=== PATIENT | male | born 1955 | race Caucasian/White ===

== ENCOUNTER 2022-11-08 09:39 | Outpatient (CLI) | payer MEDICARE, SELFPAY ==
[2022-11-08 20:28] LABS: Basophils Absolute Auto 0.1 K/mm3 (0.0-0.1); Basophils Percent Auto 0.8 % (0.2-1.2); Eosinophils Absolute Auto 0.2 K/mm3 (0-0.3); Eosinophils Percent Auto 2.6 % (0-4.4); Hematocrit 49.8 % (42.0-52.0); Hemoglobin 16.1 g/dL (14.0-18.0); Immature Granulocyte Absolute 0.02 K/mm3 (0.00-0.031); Immature Granulocyte Percent A 0.3 % (0-0.5); Lymphocytes Absolute Auto 2.25 K/mm3 (0.9-3.2); Lymphocytes Percent Auto 34.6 % (18.3-44.2); Mean Corpuscular HGB Conc 32.3 g/dl (32-36); Mean Corpuscular Hemoglobin 29.7 pg (26-34); Mean Corpuscular Volume 91.7 fl (80-100); Mean Platelet Volume 11.1 fl (7.4-10.4); Monocytes Absolute Auto 0.6 K/mm3 (0.1-0.6); Monocytes Percent Auto 8.9 % (2.6-8.5); Neutrophils Absolute Auto 3.4 K/mm3 (1.3-6.7); Neutrophils Percent Auto 52.8 % (45.5-73.1); Platelet Count Result 263 k/mm3 (150-375); Red Blood Count 5.43 M/mm3 (4.6-6.20); Red Cell Distribution Width 12.8 % (11.5-14.5); White Blood Count 6.5 K/mm3 (4.5-10.0)
[2022-11-08 21:32] LABS: Alanine Aminotransferase 37 U/L (6-50); Albumin Level 4.4 g/dL (3.5-5.1); Alkaline Phosphatase 64 U/L (38-126); Anion Gap 4 mmol/L (8-16); Aspartate Amino Transferase 40 U/L (17-59); Bilirubin,Total 0.5 mg/dL (0.2-1.3); Blood Urea Nitrogen 20 mg/dL (9-20); Calcium 9.1 mg/dL (8.4-10.2); Carbon Dioxide 29 mmol/L (22-30); Chloride 106 mmol/L (98-107); Cholesterol 246 mg/dL (0-200); Estimated Glomerular Filt Rate > 60; Glucose 95 mg/dL (65-110); HDL Direct 42 mg/dL; Potassium 4.9 mmol/L (3.4-5.0); Sodium 139 mmol/L (137-145); Triglycerides 189 mg/dL (<150)
[2022-11-08 21:44] LABS: LDL Cholesterol Direct 147 mg/dL
[2022-11-08 22:04] LABS: Prostate Specific Antigen 2.4 ng/mL (< OR = 4.0)
[2022-11-09 00:29] LABS: Vitamin D 25 Hydroxy 39.6 ng/mL
== END 2022-11-08 09:40 | disposition home or self-care (01) ==
LOC: ANHGOSHLAB 09:44
PROVIDERS: PCP Family Medicine; Visit Provider Family Medicine
DX: J30.2 Other seasonal allergic rhinitis (principal); R03.0 Elevated blood-pressure reading, without diagnosis of hypertension; E78.5 Hyperlipidemia, unspecified; Z12.5 Encounter for screening for malignant neoplasm of prostate; E53.8 Deficiency of other specified B group vitamins; E55.9 Vitamin D deficiency, unspecified
CPT/HCPCS: 36415; 80053; 80061; 82306; 82607; 84153; 84443; 85025; G0103

== ENCOUNTER 2022-11-15 08:33 | Outpatient (CLI) | payer MEDICARE, SELFPAY ==
--- NOTE | 2022-12-09 18:17 | WPDSLEEPSTUD ---
Sleep Study Date of Study: 11/15/22 Ordering Provider: Jocelynn Bravo MD Interpreting Physician: Sue Stratton MD Sleep Study Type: Split Polysomnogram Height: 1.75 m Weight: 89.358 kg Body Mass Index: 29.0 Neck Circumference (inches): 16.5 [place]: 10 Reason for Sleep Study Snoring and daytime hypersomnia Sleep History Teo Simpson is a 67-year-old male who presented to the sleep lab for a split study for evaluation of snoring and daytime hypersomnia. He rarely awakens from sleep short of breath.? He rarely awakens at night with heartburn, belching or cough.? He frequently snores and snores loud enough for others to complain. He never has trouble sleeping when he has a cold. He rarely wakes up gasping for breath during the night. He rarely has breathing problems at night. He never sweats excessively at night. He never falls asleep during the day. He does not fall asleep involuntarily and never falls asleep while driving.? He rarely notices his heart pounding or beating irregularly during the night.? He never experiences loss of muscle tone with strong emotion. He never feels paralyzed on waking or falling asleep. He does not experience vivid dreams upon waking or falling asleep. He never feels afraid of going to sleep. He never has nightmares. He rarely recalls his dreams. He occasionally has thoughts racing through his mind. He never feels sad or depressed. He never feels anxiety or worry about things. He never notices parts of his body jerk. He never kicks during the night. He never feels crawling or aching feelings in his legs. He does not grind his teeth during sleep and never has morning jaw pain. He does not feel bothered by pain during the day and does not wake up in the morning with pain. Normal bedtime is around 10:30pm on the weekdays and same on the weekends, usually falling asleep quickly, in seconds. He typically gets about 7.5 to 8 hours of sleep per night. His wake-up time is around 5am to 6am on the weekdays and same on the weekends. He typically wakes up around 1 time per night, awake 1 or 2 minutes and he goes to the bathroom. He occasionally watches television before falling asleep. He occasionally naps in the afternoon or evening but not often. Habits:? Never tobacco smoker. Drinks about 3 cups of coffee per day. He drinks alcohol socially. He does not use recreational substances.? [facility] Past Medical History Medical History Dyslipidemia Plantar fasciitis of left foot Seasonal allergies Surgical History Surgical History History of nasal surgery (~1975) for nasal fracture History of right inguinal hernia repair (~1956) congenital Family History Family History Father Hypertension Heart disease Cerebrovascular accident Mother Lung cancer Heart disease Social History Social History Smoking status: Current some day smoker Tobacco type: cigars Alcohol intake: current Substance use: never Substance use type: does not use Lack of Transportation: No Lack of Food: Never True Current Housing: I Have Housing Concerned About Future Housing: No Difficulty Paying Gas/Electric Bills: No Difficulty Paying for Meds: No Currently Unemployed: No Education: High School Diploma/GED Difficulty w/ Childcare or Family Care: No Living arrangements: with family Additional living arrangements comments: Occupation/Education: occupation Additional occupation/education comments: self employed Gender identity (if verbalized by the patient): Male Sexual Orientation (if Verbalized by the Patient): Straight or Heterosexual Agree to blood products: Yes Medications Home Medications Medication Instructions Recorded Confirmed Type fexofenadine 180 mg ta
[2022-12-09 18:21] VITALS: BMI 29.0
== END 2022-11-16 06:49 | disposition home or self-care (01) ==
LOC: ANHCSM 08:33
PROVIDERS: PCP Family Medicine; Visit Provider Family Medicine
DX: R40.0 Somnolence (principal)
CPT/HCPCS: 95811

== ENCOUNTER 2023-06-29 00:17 | Day surgery (SDC) | payer MEDICARE, SELFPAY ==
[2023-06-21 09:24] VITALS: BMI 30.3
--- NOTE | 2023-06-21 09:32 | PC.NURSE ---
PRE-OP INSTRUCTIONS, PLEASE READ CAREFULLY Report to the Outpatient Waiting Room, entrance under the green pavilion located off [facility], at time _1000_ on date _06/29/23_. Planned Procedure Time: _1200_. Time changes happen often and if your time is changed the preop area will call you the afternoon before. - You and your visitor will be asked to self-screen and do not enter if you have any COVID symptoms. - A mask is optional within the hospital at this time. Patients may have clear liquids (water, carbonated beverages, clear teas, apple juice) until 3 hours prior to surgery (0900 AM) with a maximum of 20 ounces. - No food from midnight until time of surgery Take the following medications with a SIP of water the morning of surgery: _NASAL SPRAY IF NEEDED_ DO NOT STOP ANY OF YOUR OTHER PRESCRIPTION MEDICATIONS PRIOR TO SURGERY ?EXCEPT THE FOLLOWING Medications to discontinue per physician ___NONE____, Date to take last dose Please no make-up, nail montserratian, hairspray, perfume, deodorant, or body powder the day of surgery. No jewelry (including any body piercings) or valuables the day of surgery, leave them at home. Please take a shower or bath the night before, or the morning of, surgery with an antibacterial soap. Wear comfortable, loose fitting clothing. - Jewelry must be removed prior to entering the operating room. Rings and piercings that are not removed may be cut off. - The hospital will not accept responsibility for valuables. - Please leave all valuables, including medications, at home the day of surgery. If you are going home after surgery, a licensed long haul truck driver must drive you home. - NO public transportation without another adult if you receive anesthesia. - We recommend that an adult stay with you for 24 hours following discharge. - We also recommend that you do not drive, make important decision, drink alcoholic beverages, or take any drugs that were not prescribed by your health care provider for at least 24 hours after your discharge time. Follow any additional instructions given to you from your surgeon. If you or anyone in your household have experienced Covid symptoms in the past week, please notify your surgeon or the nurse liaison at the phone number below for possible testing. Telephone instructions given to _PATIENT_and asked if any additional questions and then verbalized understanding. Patient advised to call surgeon office or pre surgery nurse liaison [phone] if any additional questions.
--- NOTE | 2023-06-28 12:02 | WPDANESEPPF ---
Anes - Initial Pre Proc Eval Procedure: Operation Date: 06/29/23 11:00 Proposed Procedures p Repair Recurrent Right Inguinal Hernia with Mesh - Omar Monte MD Date/Time: 06/28/23 12:02 Surgeon: Omar Monte MD Pre Op Diagnosis: recurrent right inguinal hernia Patient Data Age: 68 Gender: M Height: 1.75 m Weight: 93.18 kg Allergies Allergy/AdvReac Type Severity Reaction Status Date / Time erythromycin base Allergy Unknown RASH Verified 06/21/23 09:23 Home Medications Medication Instructions Recorded Confirmed Type CPAP and supplies #1 ea 12/13/22 06/19/23 Rx fluticasone propionate 50 2 spray intranasal DAILY PRN 03/07/23 06/19/23 Rx mcg/actuation nasal allergy symptoms #16 grams spray,suspension (Children's Flonase Allergy Relief) fexofenadine 180 mg tablet 180 mg PO DAILY PRN SEASONAL 06/21/23 History (Allergy Relief (fexofenadine)) ALLERGIES Results Review: All pre-operative results and documents have been reviewed as part of the pre-operative evaluation. [facility] Past Medical History Medical History (Updated 06/28/23 @ 12:03 by Milton Ozuna DO) Dyslipidemia Obstructive sleep apnea Plantar fasciitis of left foot Seasonal allergies Surgical History Surgical History History of nasal surgery (~1975) for nasal fracture History of right inguinal hernia repair (~1956) congenital Family History Family History Father Hypertension Heart disease Cerebrovascular accident Mother Lung cancer Heart disease Social History Social History Smoking status: Current every day smoker Tobacco type: cigars Additional smoking assessment comments: STATES OCCASIONAL CIGAR, 1-2 MONTH Alcohol intake: current Drinks per week: 3 Substance use: never Substance use type: does not use Lack of Transportation: No Lack of Food: Never True Current Housing: I Have Housing Concerned About Future Housing: No Difficulty Paying Gas/Electric Bills: No Difficulty Paying for Meds: No Currently Unemployed: No Education: High School Diploma/GED Difficulty w/ Childcare or Family Care: No Living arrangements: with family Additional living arrangements comments: Occupation/Education: occupation Additional occupation/education comments: self employed Gender identity (if verbalized by the patient): Male Sexual Orientation (if Verbalized by the Patient): Straight or Heterosexual Spiritual care concerns: No Agree to blood products: Yes Anes - Eval Final PreProcedure Day of Procedure 06/28/23 12:02 Patient weight: obese Heart: regular rate and rhythm Lungs: clear to auscultation Airway: Mallampati scale class II Neurological: alert and oriented Last oral intake: >/= 8 hours ASA classification: III Emergent: no Anesthetic plan: proceed Anesthesia type and monitoring: general ETT and standard monitoring Results Review: All pre-operative results and documents have been reviewed as part of the pre-operative evaluation. Informed Consent: The patient's anesthetic plan and its attendant risks and benefits were discussed with the patient/family/POA. Questions were solicited and answers provided to the satisfaction of the patient/family/POA.
[2023-06-29] VITALS (9 sets, daily range): BP systolic 124–169; BP diastolic 66–89; PULSE 75–82; RESP 12–16; TEMP 36.6–36.8; O2SAT 95–100
[2023-06-29] MEDS: LACTATED RINGERS 1,000 ML 30 ML IV CONT ×3 (10:00→15:13)
[2023-06-29] MEDS: KETOROLAC 15 MG/ML VIAL (*BKC) IV PUSH (10:00)
[2023-06-29] MEDS: ACETAMINOPHEN 500 MG TABLET 1000 MG PO (10:00)
--- NOTE | 2023-06-29 10:00 | WPDANESEPPF ---
Anes - Initial Pre Proc Eval Procedure: Operation Date: 06/29/23 11:00 Proposed Procedures p Repair Recurrent Right Inguinal Hernia with Mesh - Omar Monte MD Date/Time: 06/29/23 10:00 Surgeon: Omar Monte MD Pre Op Diagnosis: recurrent right inguinal hernia Patient Data Age: 68 Gender: M Height: 1.75 m Weight: 93.18 kg Allergies Allergy/AdvReac Type Severity Reaction Status Date / Time erythromycin base Allergy Unknown RASH Verified 06/21/23 09:23 Home Medications Medication Instructions Recorded Confirmed Type CPAP and supplies #1 ea 12/13/22 06/19/23 Rx fluticasone propionate 50 2 spray intranasal DAILY PRN 03/07/23 06/19/23 Rx mcg/actuation nasal allergy symptoms #16 grams spray,suspension (Children's Flonase Allergy Relief) fexofenadine 180 mg tablet 180 mg PO DAILY PRN SEASONAL 06/21/23 History (Allergy Relief (fexofenadine)) ALLERGIES Patient hx anesthesia problems: none Family hx anesthesia problems: none Results Review: All pre-operative results and documents have been reviewed as part of the pre-operative evaluation. [facility] Past Medical History Medical History (Updated 06/28/23 @ 12:03 by Milton Ozuna DO) Dyslipidemia Obstructive sleep apnea Plantar fasciitis of left foot Seasonal allergies Surgical History Surgical History History of nasal surgery (~1975) for nasal fracture History of right inguinal hernia repair (~1956) congenital Family History Family History Father Hypertension Heart disease Cerebrovascular accident Mother Lung cancer Heart disease Social History Social History Smoking status: Current every day smoker Tobacco type: cigars Additional smoking assessment comments: STATES OCCASIONAL CIGAR, 1-2 MONTH Alcohol intake: current Drinks per week: 3 Substance use: never Substance use type: does not use Lack of Transportation: No Lack of Food: Never True Current Housing: I Have Housing Concerned About Future Housing: No Difficulty Paying Gas/Electric Bills: No Difficulty Paying for Meds: No Currently Unemployed: No Education: High School Diploma/GED Difficulty w/ Childcare or Family Care: No Living arrangements: with family Additional living arrangements comments: Occupation/Education: occupation Additional occupation/education comments: self employed Gender identity (if verbalized by the patient): Male Sexual Orientation (if Verbalized by the Patient): Straight or Heterosexual Spiritual care concerns: No Agree to blood products: Yes Anes - Eval Final PreProcedure Day of Procedure 06/29/23 10:00 Patient weight: obese Heart: regular rate and rhythm Lungs: clear to auscultation Airway: Mallampati scale class II Neurological: alert and oriented Last oral intake: >/= 8 hours ASA classification: III Emergent: no Anesthetic plan: proceed Anesthesia type and monitoring: general LMA and standard monitoring Results Review: All pre-operative results and documents have been reviewed as part of the pre-operative evaluation. Informed Consent: The patient's anesthetic plan and its attendant risks and benefits were discussed with the patient/family/POA. Questions were solicited and answers provided to the satisfaction of the patient/family/POA.
--- NOTE | 2023-06-29 11:38 | WPDHPUPDATE1 ---
History and Physical Update Update Date/Time: 06/29/23 11:38 History and Physical has been reviewed, including an updated exam of the patient. There are NO changes in the patient's condition. Risks, benefits, and alternatives have been discussed and questions answered. Patient agrees to proceed with procedure.
[2023-06-29] MEDS: ceFAZolin 2 GM/D5W 50 ML 2 GM/50 ML BAG IVPB (11:46)
[2023-06-29] MEDS: LIDO 1%/EPINEPHRINE 1:100,000 50 ML VIAL 30 ML INFILTRATE (12:28)
--- NOTE | 2023-06-29 13:55 | W.PM.PROC2 ---
Procedure Note - Detailed Date of Procedure 06/29/23 Pre-op Diagnosis recurrent right inguinal hernia Post-op Diagnosis Same Procedure Performed Repair recurrent right inguinal hernia with soft polypropylene mesh Surgeon Omar Monte MD Computer Security Coordinator Fiona RUTH Anesthesia General and Local (0.5% Marcaine with epinephrine) Indications Patient has had a gradually increasing right groin bulge for at least 8 years. It is getting large enough that it is uncomfortable and occasionally painful. He is very active snow skiing and water skiing. After discussion he is taken to surgery now for right inguinal hernia repair with mesh Findings Very large direct inguinal hernia that included all of the direct space and actually eroded some of the area lateral to the inferior epigastric vessels. There was a lot of scar tissue present even though his initial repair was done at age [age]. Description of Procedure Patient was taken to surgery and induced into general anesthesia. The right groin and genitalia were prepped and draped. The proposed right inguinal incision was marked on the skin. Local anesthesia was infiltrated in the area of the anticipated incision as well as some local infiltrated for ileoinguinal nerve block. Incision was made and dissection was carried down through the subcutaneous. As we passed Carlos's fascia, the herniated tissue was evident. I dissected around this on both the cephalad and caudad side. I then dissected laterally trying to find external oblique aponeurosis. I had to inject additional local and then extend the original incision laterally. When this was done, I dissected down and did find relatively on affected external oblique aponeurosis. Additional local was infiltrated deep to the aponeurosis. The aponeurosis was opened and this was then extended through the external ring. The ileal inguinal nerve was seen but was lost as it was caught up in the extremely large hernia. I dissected the leaves the aponeurosis from the underlying inguinal canal contents. I then tried to dissect under the hernia sac near the pubic tubercle but there was too much tissue to do this safely. I dissected anteromedially in spermatic cord where it was herniated. I was able to found the vas deferens and spermatic cord vessels. I carefully dissected these medial to the hernia trying to protect them as best possible throughout the surgery. I could never find the ilioinguinal nerve in this area of the hernia sac. I then dissected further into the hernia sac and eventually found the sac itself. There was a lot of fibrous encapsulated Ng scar tissue that I dissected through. There was quite a bit of cremasteric fiber as well. Eventually I dissected down to the sac and found the into the sac. There was some lipomatous tissue associated with it. I then carefully dissected the cord structures off the sac throughout the length of the inguinal canal including back to the internal ring. I then continued to dissect the sac from the surrounding structures. Eventually it was evident that this was a direct inguinal hernia but additionally it extended beyond the inferior epigastric vessels laterally thereby including some of the area where 1 would consider an indirect hernia. I continued to dissect the sac circumferentially. Once it was dissected adequately I scored the hernia sac circumferentially about a cm or 2 above the inguinal canal floor. I was then able to dunked the hernia sac into the retroperitoneum. It had to be held in place there by a couple of Ray-Levi sponges. I then started the closure with 0 Ethibond suture. I started medially using the pubic tubercle and suturing to the transversalis fascia. I then proceeded from medial lateral suturing transversalis fascia to the reflection of the inguinal ligament. The Ray-Levi sponges were removed during the process. We we closed the defect such that only the tip of a clamp could be admitted between t
[2023-06-29] MEDS: oxyCODONE HCL (*CRX) 5 MG TAB IR PO (16:12)
== END 2023-06-29 16:20 | disposition home or self-care (01) ==
PROVIDERS: PCP Family Medicine; Visit Provider Surgery
PROC: (CPT 49520; principal; 2023-06-29 11:00)
DX: K40.91 Unilateral inguinal hernia, without obstruction or gangrene, recurrent (principal); E78.5 Hyperlipidemia, unspecified; J30.2 Other seasonal allergic rhinitis; F17.290 Nicotine dependence, other tobacco product, uncomplicated; G47.33 Obstructive sleep apnea (adult) (pediatric); E66.9 Obesity, unspecified; Z68.31 Body mass index [BMI] 31.0-31.9, adult; Z98.890 Other specified postprocedural states; Z99.89 Dependence on other enabling machines and devices; Z82.49 Family history of ischemic heart disease and other diseases of the circulatory system; Z80.1 Family history of malignant neoplasm of trachea, bronchus and lung
CPT/HCPCS: 49520; A9270; C1781; J0690; J1100; J1170; J1885; J2250; J2405; J2704; J3010; J7120

== ENCOUNTER 2023-07-17 09:15 | Outpatient (CLI) | payer MEDICARE, SELFPAY ==
--- NOTE | ~2023-07-17 | US_ITS ---
US soft tissue groin RT 07/17/2023 10:18 Indication: Inguinal hernia. Recent surgery. Procedure: High-resolution ultrasound of the right groin Comparison: No prior studies for comparison. Findings: No hernia identified on current study. There is a septated right hydrocele. No superficial soft tissue abnormality. Impression: 1: No evidence for recurrent hernia. 2: Complicated septated right hydrocele. Reviewed, dictated and finalized at location B. Impression: 1: No evidence for recurrent hernia. 2: Complicated septated right hydrocele.
== END 2023-07-17 09:16 ==
PROVIDERS: PCP Family Medicine; Visit Provider Surgery
DX: N50.89 Other specified disorders of the male genital organs (principal); K40.91 Unilateral inguinal hernia, without obstruction or gangrene, recurrent
CPT/HCPCS: 76882

== ENCOUNTER 2023-07-26 11:03 | Outpatient (CLI) | payer MEDICARE, SELFPAY ==
--- NOTE | ~2023-07-26 | CT_ITS ---
EXAMINATION: CT pelvis wo con DATE: 07/26/2023 11:21 INDICATION: Unilateral inguinal hernia TECHNIQUE: High resolution computed tomography (CT) of the pelvis was performed without intravenous c ontrast. Additional sagittal and coronal reconstructions were performed. Automated exposure control a nd iterative reconstruction technique were employed. The dose-length product was 692.26 mGy-cm. COMPARISON: Ultrasound dated 07/17/2023 FINDINGS: Small fat-containing left inguinal hernia. There is a large direct right inguinal hernia which contai ns the terminal ileum and tip of the cecum and which extends to the base of the right hemiscrotum. No rmal appendix extends back from the orifice of the hernia into the pelvis. No bowel obstruction. Ther e is prominent sigmoid predominant diverticulosis along the visualized colon without adjacent from tr ingrid stranding to suggest diverticulitis. Visualized caudal tip of the right hepatic lobe and the visu alized portions of the lower poles of both kidneys are normal. Bladder is normal. Prostatomegaly. Mod erate-sized right hydrocele. No pathologically enlarged pelvic or inguinal lymphadenopathy. Moderate to severe disc height loss at L5-S1. 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 IMPRESSION: 1. Large direct right inguinal hernia which contains the terminal ileum and tip of the cecum. No mercedes l obstruction. 2. Small fat-containing left inguinal hernia. 3. Diverticulosis. 4. Prostatomegaly. Reviewed, dictated and finalized at location A. IMPRESSION: 1. Large direct right inguinal hernia which contains the terminal ileum and tip of the cecum. No bowel obstruction. 2. Small fat-containing left inguinal hernia. 3. Diverticulosis. 4. Prostatomegaly.
== END 2023-07-26 11:04 | disposition home or self-care (01) ==
LOC: ANHIMG 11:06
PROVIDERS: PCP Family Medicine; Visit Provider Surgery
DX: K40.91 Unilateral inguinal hernia, without obstruction or gangrene, recurrent (principal); K57.90 Diverticulosis of intestine, part unspecified, without perforation or abscess without bleeding; N40.0 Benign prostatic hyperplasia without lower urinary tract symptoms
CPT/HCPCS: 72192

== ENCOUNTER 2023-08-11 09:08 | Outpatient (CLI) | payer MEDICARE, SELFPAY ==
--- NOTE | 2023-08-11 09:16 | ECG_ITS ---
SEE SCANNED COPY FOR CONFIRMED REPORT MTDD
[2023-08-11 09:39] LABS: Basophils Absolute Auto 0.1 K/mm3 (0.0-0.1); Basophils Percent Auto 0.9 % (0.2-1.2); Eosinophils Absolute Auto 0.3 K/mm3 (0-0.3); Eosinophils Percent Auto 3.7 % (0-4.4); Hematocrit 49.7 % (42.0-52.0); Hemoglobin 16.3 g/dL (14.0-18.0); Immature Granulocyte Absolute 0.07 K/mm3 (0.00-0.031); Immature Granulocyte Percent A 0.8 % (0-0.5); Mean Corpuscular HGB Conc 32.8 g/dl (32-36); Mean Corpuscular Hemoglobin 30.4 pg (26-34); Mean Corpuscular Volume 92.6 fl (80-100); Mean Platelet Volume 9.9 fl (7.4-10.4); Monocytes Absolute Auto 0.8 K/mm3 (0.1-0.6); Monocytes Percent Auto 8.5 % (2.6-8.5); Neutrophils Absolute Auto 4.7 K/mm3 (1.3-6.7); Neutrophils Percent Auto 51.1 % (45.5-73.1); Platelet Count Result 333 k/mm3 (150-375); Red Blood Count 5.37 M/mm3 (4.6-6.20); Red Cell Distribution Width 12.8 % (11.5-14.5); White Blood Count 9.1 K/mm3 (4.5-10.0)
== END 2023-08-11 09:09 | disposition home or self-care (01) ==
LOC: ANHSURGERY 09:11
PROVIDERS: PCP Family Medicine; Visit Provider Surgery
DX: Z01.818 Encounter for other preprocedural examination (principal); E78.5 Hyperlipidemia, unspecified; K40.31 Unilateral inguinal hernia, with obstruction, without gangrene, recurrent
CPT/HCPCS: 36415; 85025; 86850; 86900; 86901; 93005

== ENCOUNTER 2023-08-16 00:33 | Day surgery (SDC) | payer MEDICARE, SELFPAY ==
[2023-08-10 13:46] VITALS: BMI 31.1
--- NOTE | 2023-08-10 14:14 | PC.NURSE ---
Report to the Outpatient Waiting Room, entrance under the green pavilion located off [facility], at time __10:30AM on date __08/16/23 . Planned Procedure Time: ___12:30PM . Time changes happen often and if your time is changed the preop area will call you the afternoon before. - You and your visitor will be asked to self-screen and do not enter if you have any COVID symptoms. - A mask is optional within the hospital at this time. Patients may have clear liquids (water, carbonated beverages, clear teas, apple juice) until 3 hours prior to surgery with a maximum of 20 ounces. - No food from midnight until time of surgery. Take the following medications with a SIP of water the morning of surgery: ____NONE DO NOT STOP ANY OF YOUR OTHER PRESCRIPTION MEDICATIONS PRIOR TO SURGERY ?EXCEPT THE FOLLOWING Medications to discontinue per physician NONE Date to take last dose Please no make-up, nail tamazight, hairspray, perfume, deodorant, or body powder the day of surgery. No jewelry (including any body piercings) or valuables the day of surgery, leave them at home. Please take a shower or bath the night before, or the morning of, surgery with an antibacterial soap. Wear comfortable, loose fitting clothing. - Jewelry must be removed prior to entering the operating room. Rings and piercings that are not removed may be cut off. - The hospital will not accept responsibility for valuables. - Please leave all valuables, including medications, at home the day of surgery. If you are going home after surgery, a licensed driver material handler must drive you home. - NO public transportation without another adult if you receive anesthesia. - We recommend that an adult stay with you for 24 hours following discharge. - We also recommend that you do not drive, make important decision, drink alcoholic beverages, or take any drugs that were not prescribed by your health care provider for at least 24 hours after your discharge time. Follow any additional instructions given to you from your surgeon. If you or anyone in your household have experienced Covid symptoms in the past week, please notify your surgeon or the nurse liaison at the phone number below for possible testing. Telephone instructions given to ____PATIENT'S -APR and asked if any additional questions and then verbalized understanding. Patient advised to call surgeon office or pre surgery nurse liaison [phone] if any additional questions.
[2023-08-16] VITALS (9 sets, daily range): BP systolic 137–160; BP diastolic 71–90; PULSE 85–93; RESP 14–18; TEMP 36.1–36.2; O2SAT 94–100
--- NOTE | 2023-08-16 09:52 | WPDHPUPDATE1 ---
History and Physical Update Update Date/Time: 08/16/23 09:52 History and Physical has been reviewed, including an updated exam of the patient. There are NO changes in the patient's condition. Risks, benefits, and alternatives have been discussed and questions answered. Patient agrees to proceed with procedure.
[2023-08-16] MEDS: LACTATED RINGERS 1,000 ML 30 ML IV CONT ×3 (11:40→16:01)
[2023-08-16] MEDS: ACETAMINOPHEN 500 MG TABLET 1000 MG PO (11:41)
--- NOTE | 2023-08-16 11:50 | WPDANESEPPF ---
Anes - Initial Pre Proc Eval Procedure: Operation Date: 08/16/23 12:30 Proposed Procedures p Robotic Repair Recurrent Incarcerated Right Inguinal Hernia - Omar Monte MD Date/Time: 08/16/23 11:50 Surgeon: Omar Monte MD Pre Op Diagnosis: incarcerated recurrent right inguinal hernia Patient Data Age: 68 Gender: M Height: 1.73 m Weight: 94.4 kg Last Vital Signs Temp 97.2 F L 08/16/23 10:40 Pulse 87 08/16/23 10:40 Resp 18 08/16/23 10:40 BP 160/81 H 08/16/23 10:40 Pulse Ox 96 08/16/23 10:40 O2 Del Method Room Air 08/16/23 10:40 Allergies Allergy/AdvReac Type Severity Reaction Status Date / Time erythromycin base Allergy Unknown RASH Verified 08/10/23 13:45 oxycodone AdvReac NAUSEA, Verified 08/10/23 15:22 CLOUDY MIND Home Medications Medication Instructions Recorded Confirmed Type CPAP and supplies #1 ea 12/13/22 08/02/23 Rx fexofenadine 180 mg tablet 180 mg PO DAILY PRN SEASONAL 06/21/23 08/10/23 History (Allergy Relief (fexofenadine)) ALLERGIES fluticasone propionate 50 2 spray intranasal DAILY PRN Nasal 08/10/23 08/10/23 History mcg/actuation nasal Congestion spray,suspension magnesium hydroxide 400 mg/5 mL 400 mg PO DAILY PRN Constipation 08/10/23 08/10/23 History oral suspension (Milk of Magnesia) Patient hx anesthesia problems: none Family hx anesthesia problems: none Results Review: All pre-operative results and documents have been reviewed as part of the pre-operative evaluation. [facility] Past Medical History Medical History Dyslipidemia Obstructive sleep apnea Plantar fasciitis of left foot Seasonal allergies Surgical History Surgical History History of nasal surgery (~1975) for nasal fracture History of right inguinal hernia repair (~1956) Repair recurrent right inguinal hernia with soft polypropylene mesh 06/29/23 Family History Family History Father Hypertension Heart disease Cerebrovascular accident Mother Lung cancer Heart disease Social History Social History Smoking status: Current some day smoker Tobacco type: cigars Additional smoking assessment comments: OCCASSIONALLY SMOKES A CIGAR Alcohol intake: current Drinks per week: 3 Substance use: never Substance use type: does not use Lack of Transportation: No Lack of Food: Never True Current Housing: I Have Housing Concerned About Future Housing: No Difficulty Paying Gas/Electric Bills: No Difficulty Paying for Meds: No Currently Unemployed: No Education: High School Diploma/GED Difficulty w/ Childcare or Family Care: No Living arrangements: with family Additional living arrangements comments: Occupation/Education: occupation Additional occupation/education comments: self employed Gender identity (if verbalized by the patient): Male Sexual Orientation (if Verbalized by the Patient): Straight or Heterosexual Spiritual care concerns: No Agree to blood products: Yes Anes - Eval Final PreProcedure Day of Procedure 08/16/23 11:50 Patient weight: obese Heart: regular rate and rhythm Lungs: clear to auscultation Airway: Mallampati scale class II Neurological: alert and oriented Last oral intake: >/= 8 hours ASA classification: III Emergent: no Anesthetic plan: proceed Anesthesia type and monitoring: general ETT and standard monitoring Results Review: All pre-operative results and documents have been reviewed as part of the pre-operative evaluation. Informed Consent: The patient's anesthetic plan and its attendant risks and benefits were discussed with the patient/family/POA. Questions were solicited and answers provided to the satisfaction of the patient/family/POA.
[2023-08-16] MEDS: KETOROLAC 15 MG/ML VIAL (*BKC) IV PUSH (11:53)
[2023-08-16] MEDS: ceFAZolin 2 GM/D5W 50 ML 2 GM/50 ML BAG IVPB (12:28)
[2023-08-16] MEDS: BUPIVACAINE/EPINEPHRINE 0.5% 30 ML VIAL INFILTRATE (12:51)
--- NOTE | 2023-08-16 14:57 | W.PM.PROC2 ---
Procedure Note - Detailed Date of Procedure 08/16/23 Pre-op Diagnosis incarcerated recurrent right inguinal hernia Post-op Diagnosis Other (Incarcerated recurrent sliding right inguinal hernia, right hydrocele) Procedure Performed Robotic laparoscopic repair incarcerated recurrent sliding right inguinal hernia with mesh Surgeon Omar Monte MD Coremaker Pipe Terry TORRES Anesthesia General and Local Indications Patient had an open repair of a very large direct hernia that actually extended into the scrotum. This was done with mesh on 06/29/2023. He had also had a right inguinal hernia repair when he was a toddler. He had a recurrent bulge in the right groin within 2 weeks of the repair. Ultrasound and CT scan were done and showed evidence of a recurrent large hernia with ileum and cecum in the hernia sac. This has been very uncomfortable for him and he is taken back to surgery at this time for laparoscopic robotic repair of his multiplie recurrent right inguinal hernia. Findings Patient had a large direct hernia with the cecum forming the lateral wall consistent with a sliding recurrent right inguinal hernia. It was also noted after I reduced the hernia under anesthesia that he had a hydrocele. Description of Procedure Patient was taken to surgery and induced into general anesthesia. The recurrent right inguinal hernia was reduced and it was noted that he still had a hydrocele in the scrotum. I used a 3 in Seng wrap and wrapped the scrotum to minimize any CO2 distension of the scrotum during the procedure. The abdomen was then prepped and draped. Trocars were placed in the usual fashion across the abdomen above the umbilicus. Initial trocar was then applied Medical 5 mm to all optical trocar in the left upper abdomen. Robotic ports were placed under direct visualization. Please was placed in Trendelenburg. An ilioinguinal nerve block was then given on the right side. The robotic arms were brought into the field and the camera was docked and targeted. The instrument arms were docked and the instruments placed. The surgeon went to the robotic console. A wide peritoneal flap was created starting anterior to the inguinal canal structures. This was started laterally and extended medially to the median umbilical ligament. The flap was developed broadly with most of the dissection done laterally and medially leaving the area of the hernia for now. The peritoneum was quite thin so posterior rectus sheath was entered and was left with the peritoneum to add strength and minimize chances of holes. Medially we dissected behind the rectus muscle down to the pubis and Rudy's ligament. We carefully dissected the bladder away from the pubis and Rudy's ligament and dissected about 2 cm posterior to Rudy's ligament. We dissected across the midline anteriorly so that the medial edge of the left rectus muscle was identified. I then continued the lateral dissection and continued this posterior to the iliopubic tract. Looking now at the very large direct hernia, I began dissecting on the anterior surface of this and slowly divided attachments. This was done primarily with the cautery and very little blood loss was encountered. Was then able to slowly reduce the hernia sac. I did enter the peritoneal space just lateral to the ascending colon. The colon was carefully avoided. The dissection was continued medially and laterally on the hernia sac. Eventually I was able to see the medial aspect of Rudy's ligament. The herniated contents were completely reduced and I was able to find the cord structures medially and carefully dissect them away from the hernia sac. The dissection was continued and the hernia sac was dissected posteriorly. We continued dissection of the peritoneum posteriorly until there was adequate room for the mesh to lie comfortably and cover the potential inguinal hernia areas. We then introduced an extra-large 17 x 12 cm right-sided mid 3DM
== END 2023-08-16 17:15 | disposition home or self-care (01) ==
PROVIDERS: PCP Family Medicine; Visit Provider Surgery
PROC: 8E0Y4CZ Robotic Assisted Procedure of Lower Extremity, Percutaneous Endoscopic Approach (ICD-10-PCS; CPT 49650; principal; 2023-08-16 12:30)
DX: K40.31 Unilateral inguinal hernia, with obstruction, without gangrene, recurrent (principal); Z72.0 Tobacco use; E66.9 Obesity, unspecified; Z68.31 Body mass index [BMI] 31.0-31.9, adult
CPT/HCPCS: 49651; S2900; A9270; C1781; J0690; J1100; J1170; J1885; J2250; J2405; J2704; J3010; J7120

== ENCOUNTER 2023-09-27 11:24 | Outpatient (CLI) | payer MEDICARE, SELFPAY ==
--- NOTE | ~2023-09-27 | US_ITS ---
EXAMINATION: US soft tissue groin RT DATE: 09/27/2023 11:45 INDICATION: Right inguinal hernia. TECHNIQUE: Multiple grayscale and Doppler ultrasound images of the right groin were obtained. COMPARISON: Pelvis CT 07/26/2023, ultrasound 07/17/2023 FINDINGS: In the right inguinal region, there is a 9.8 x 6.3 x 2.4 cm cystic mass with numerous septa tions. IMPRESSION: 1. 9.8 cm cystic mass in the right inguinal region, consistent with seroma/hematoma. Reviewed, dictated and finalized at location A. IMPRESSION: 1. 9.8 cm cystic mass in the right inguinal region, consistent with seroma/bharti mellissa.
== END 2023-09-27 11:25 ==
PROVIDERS: PCP Family Medicine; Visit Provider Surgery
DX: K40.91 Unilateral inguinal hernia, without obstruction or gangrene, recurrent (principal); R22.41 Localized swelling, mass and lump, right lower limb
CPT/HCPCS: 76882

== ENCOUNTER 2023-11-24 08:14 | Outpatient (CLI) | payer MEDICARE, SELFPAY ==
[2023-11-24 13:02] LABS: Basophils Absolute Auto 0.1 K/mm3 (0.0-0.1); Basophils Percent Auto 0.7 % (0.2-1.2); Eosinophils Absolute Auto 0.3 K/mm3 (0-0.3); Eosinophils Percent Auto 4.3 % (0-4.4); Hematocrit 50.3 % (42.0-52.0); Hemoglobin 16.6 g/dL (14.0-18.0); Immature Granulocyte Absolute 0.02 K/mm3 (0.00-0.031); Immature Granulocyte Percent A 0.3 % (0-0.5); Lymphocytes Percent Auto 34.4 % (18.3-44.2); Mean Corpuscular Hemoglobin 30.9 pg (26-34); Mean Corpuscular Volume 93.7 fl (80-100); Monocytes Absolute Auto 0.7 K/mm3 (0.1-0.6); Monocytes Percent Auto 10.3 % (2.6-8.5); Neutrophils Absolute Auto 3.3 K/mm3 (1.3-6.7); Platelet Count Result 233 k/mm3 (150-375); Red Blood Count 5.37 M/mm3 (4.6-6.20); Red Cell Distribution Width 12.9 % (11.5-14.5); White Blood Count 6.7 K/mm3 (4.5-10.0)
[2023-11-24 13:16] LABS: Alanine Aminotransferase 42 U/L (6-50); Albumin Level 4.4 g/dL (3.5-5.1); Alkaline Phosphatase 75 U/L (38-126); Anion Gap 8 mmol/L (4-12); Aspartate Amino Transferase 49 U/L (17-59); Bilirubin,Total 0.7 mg/dL (0.2-1.3); Blood Urea Nitrogen 21 mg/dL (9-20); Carbon Dioxide 24 mmol/L (22-30); Chloride 107 mmol/L (98-107); Cholesterol 231 mg/dL (0-200); Estimated Glomerular Filt Rate 60; Glucose 93 mg/dL (65-110); HDL Direct 36 mg/dL; Potassium 4.4 mmol/L (3.4-5.0); Sodium 139 mmol/L (137-145); Triglycerides 305 mg/dL (<150)
[2023-11-24 13:27] LABS: LDL Cholesterol Direct 124 mg/dL
[2023-11-24 22:23] LABS: Vitamin D 25 Hydroxy 34.3 ng/mL
== END 2023-11-24 08:15 | disposition home or self-care (01) ==
PROVIDERS: PCP Family Medicine; Visit Provider Family Medicine
DX: Z12.5 Encounter for screening for malignant neoplasm of prostate (principal); E78.5 Hyperlipidemia, unspecified; I10 Essential (primary) hypertension; K40.91 Unilateral inguinal hernia, without obstruction or gangrene, recurrent; E53.8 Deficiency of other specified B group vitamins; E55.9 Vitamin D deficiency, unspecified
CPT/HCPCS: 36415; 80053; 80061; 82306; 82607; 84153; 84443; 85025; G0103

== ENCOUNTER 2024-01-31 12:38 | Outpatient (CLI) | payer MEDICARE, SELFPAY ==
--- NOTE | ~2024-01-31 | MR_ITS ---
MRI of the left ankle Clinical history: Achilles tendinitis Technique: Coronal proton-density and proton-density fat-sat images, axial proton-density and proton- density fat-sat images, and sagittal proton-density and proton-density fat-sat images were acquired. Findings: Syndesmotic ligaments are intact. Anterior and posterior talofibular ligaments, and calcane ofibular ligament are intact. Deltoid ligament is intact. There is mild to moderate tendinosis of the distal tibial posterior tendon. Flexor tendons otherwise are intact. Peroneal tendons, anterior extensor tendons, and Achilles tendon are intact. No osteochondral lesion of the talar dome. Bone marrow signals are intact. Joint spaces are relativel y well preserved throughout the ankle. No suspicious bone marrow signal abnormality seen. Plantar fas stephanie demonstrates mild thickening and increased signal is tiny plantar calcaneal spur. Normal signal p reserved in the sinus Tarsi. No soft tissue mass or fluid collection. Impression: Probable mild chronic plantar fasciitis, mild thickening and increased signal at the origin of the pl kaylee fascia. Mild to moderate tendinosis of the distal tibialis posterior tendon. Achilles tendon is unremarkable. Reviewed, dictated and finalized at location M. Impression: Probable mild chronic plantar fasciitis, mild thickening and increased signal a t the origin of the plantar fascia. Mild to moderate tendinosis of the distal tibialis posterior tendon. Achilles tendon is unremarkable.
== END 2024-01-31 12:39 | disposition home or self-care (01) ==
LOC: GOSHIMG 12:40
PROVIDERS: PCP Family Medicine; Visit Provider Podiatrist Foot & Ankle Surgery
DX: M72.2 Plantar fascial fibromatosis (principal); M76.822 Posterior tibial tendinitis, left leg; M76.62 Achilles tendinitis, left leg
CPT/HCPCS: 73721

== ENCOUNTER 2024-12-27 07:07 | Outpatient (CLI) | payer MEDICARE, SELFPAY ==
--- NOTE | ~2024-12-27 | US_ITS ---
EXAMINATION:US venous doppler LE LT INDICATION:Left leg pain TECHNIQUE: Multiple grayscale, color flow and Doppler images of the left lower extremity deep venous systems were obtained and reviewed. COMPARISON:No prior studies for comparison. FINDINGS: The common femoral, superficial femoral and popliteal veins demonstrate normal respiratory variation, augmentation and compressibility. Color flow is also seen within the posterior tibial, peroneal, greater saphenous and profunda veins. IMPRESSION: 1: No lower extremity deep venous thrombosis. Reviewed, dictated and finalized at location O.
--- NOTE | ~2024-12-27 | CT_ITS ---
EXAMINATION: CT lung screening DATE: 12/27/2024 08:18 INDICATION: Personal history of nicotine dependence TECHNIQUE: Computed tomography (CT) of the chest was performed without intravenous contrast. The dose-length product was 175.38 mGy-cm. Automated exposure control and iterative reconstruction technique were employed. COMPARISON: None FINDINGS: Heart size normal. No significant pleural or pericardial effusion. No significant pleural or pericardial effusion. There is calcified granuloma left upper lobe. No thoracic lymphadenopathy. There are gallstones. There are small 1-2 mm nodules in the left upper lobe. There is a 3 mm fissural nodule on the right. No focal airspace consolidation. No endobronchial lesions. No pneumothorax. Mild thoracic spondylosis. IMPRESSION: 1. Lung-RADS category 2: Benign appearance or behavior. Continue annual screening with noncontrast low-dose chest CT in 12 months. Reviewed, dictated and finalized at location O. IMPRESSION: 1. Lung-RADS category 2: Benign appearance or behavior. Continue annual screeni ng with noncontrast low-dose chest CT in 12 months.
--- NOTE | ~2024-12-27 | US_ITS ---
EXAMINATION: US aorta [facility] DATE: 01/03/2025 15:58 CDT INDICATION: Screening. TECHNIQUE: Grayscale, color Doppler, and pulsed Doppler images of the aorta and common iliac arteries were obtained. COMPARISON: None. FINDINGS: The proximal aorta measures 1.7 cm greatest sagittal dimension. The mid aorta measures 1.4 cm greatest sagittal dimension. The distal aorta measures 1.1 cm greatest sagittal dimension. The right common internal iliac artery measures 1.2 cm. The left common iliac artery measures 1.2 cm. IMPRESSION: 1. Normal caliber aorta without aneurysm. Reviewed, dictated and finalized at location O.
--- OUTSIDE RECORDS SUMMARY | 2024-12-27 07:14 | XMS_ITS | Clinical Summary ---
Author Organization [facility] [address] Address [address] [place] [id number] Care Team Providers Care Digester Name Role Phone Jocelynn Bravo MD Primary Care Provider Allergies Active Allergy Reactions Criticality Noted Date Comments Erythromycin Base Rash Medium 08/10/2023 Oxycodone Nausea & Vomiting Low 08/10/2023 Medications albuterol HFA (PROVENTIL HFA,VENTOLIN HFA,PROAIR HFA) 90 mcg/actuation inhaler 5 Active fluticasone propionate (FLONASE) 50 mcg/actuation nasal spray 2 SPRAY INTRANASALLY DAILY NEEDED FOR NASAL CONGESTION 5 Active fexofenadine (LINDA) 180 mg tablet Take 1 tablet (180 mg total) by mouth daily 4 Active Active Problems No known active problems Encounters Date Type Department Care Team Description 12/25/2024 Telephone [facility] Orthopedics and Sports Medicine [address] [phone] Janet Giang MA 12/17/2024 9:30 AM CDT Ancillary Procedure [facility] Imaging at [address] [id number] Left leg pain 12/17/2024 9:15 AM CDT Office Visit [facility] and Primary Care at [address] [place] [address] Eagle Lindquist DO Left leg pain (Primary Dx) from Last 3 Months Social History Tobacco Use Types Packs/Day Years Used Date Smoking Tobacco: Some Days Cigars Sex and Gender Information Value Date Recorded Sex Assigned at Not on file Legal Sex Male 9:40 AM CDT Gender Identity Not on file Sexual Orientation Not on file Obstetrics History Last Filed Vital Signs Vital Sign Reading Time Taken Comments Blood Pressure 157/83 12/17/2024 9:39 AM CDT Pulse 96 12/17/2024 9:39 AM CDT Temperature - - Respiratory Rate - - Oxygen Saturation - - Inhaled Oxygen Concentration - - Weight 91.7 kg (202 lb 1.6 oz) 12/17/2024 9:39 A M CDT Height 175.3 cm (5' 9) 12/17/2024 9:39 AM CDT Body Mass Index 29.84 12/17/2024 9:39 AM CDT Plan of Treatment Health Maintenance Due Date Last Done Comments Colon Cancer Screening-Colonoscopy 1955 Depression Screening 1955 Fall Risk Assessment 1955 Hepatitis C Screening 1955 Prostate Cancer Screening-PSA 1955 DTaP/Tdap/Td Vaccine (1 - Tdap) 02/10/1967 Hepatitis B Screening 02/10/1974 Zoster Vaccine (1 of 2) 02/10/2006 Abdominal Aortic Aneurysm (AAA) Screen 02/10/2021 Well Visit 65+ 02/10/2021 Influenza Vaccine (#1) 2024 Pneumococcal vaccine 65+ Completed 05/30/2023 Procedures Procedure Name Priority Date/Time Associated Diagnosis Comments XR TIBIA FIBULA LEFT 2 VIEWS Schedule Routine, Read Routine (OP Routine) 12/17/2024 9:33 AM CDT Left leg pain from Last 3 Months Results * XR Tibia Fibula Left 2 Views (12/17/2024 9:33 AM CDT) Anatomical Region Laterality Modality Lower Extremities, Lower Leg Left Dig ital Radiography 12/17/2024 11:4 7 AM CDT Narrative 12/17/2024 11:48 AM CDT EXAM DESCRIPTION: XR TIBIA FIBULA LEFT 2 VIEWS REASON FOR STUDY: pain Pt complains of calf pain x 2 months. No known injury or prior surgery. TECHNIQUE: There are 2 radiographic view(s) of the left tibia and fibula . COMPARISON: No prior. FINDINGS: Normal mineralization. No acute fracture or dislocation. There is atherosclerotic change. IMPRESSION: 1. No acute fracture. 2. Atherosclerotic change. THIS IS AN ELECTRONICALLY VERIFIED FINAL REPORT 12/17/2024 11:48 AM - Electronically signed by Eagle MERIDA T: Report ID: [id number] Reading Location: [id number] Procedure Note Eagle Castro MD - 12/17/2024 EXAM DESCRIPTION: XR TIBIA FIBULA LEFT 2 VIEWS REASON FOR STUDY: pain Pt complains of calf pain x 2 months. No known injury or prior surgery. TECHNIQUE: There are 2 radiographic view(s) of the left tibia and fibula. COMPARISON: No prior. FINDINGS: Normal mineralization. No acute fracture or dislocation. Thereis atherosclerotic change. IMPRESSION: 1. No acute fracture. 2. Atherosclerotic change. THIS IS AN ELECTRONICALLY VERIFIED FINAL REPORT 12/17/2024 11:48 AM - Electronically signed by Eagle MERIDA T: Report ID: [id number] Reading Location: [id number] Eagle Lindquist DO IMG XR PROCEDURES Rose l Result from Last 3 Months Insurance MEDICARE [employer] Care Teams Digester Relationship Specialty Start Date End Date Jocelynn Bravo MD [id number] [facility] [address] [id number] PCP - General Family Practice 12/11/24
[2024-12-27 08:45] LABS: Hematocrit 49.0 % (42.0-52.0); Hemoglobin 16.2 g/dL (14.0-18.0); Immature Granulocyte Percent A 0.1 % (0-0.5); Lymphocytes Absolute Auto 2.32 K/mm3 (0.9-3.2); Mean Corpuscular HGB Conc 33.1 g/dl (32-36); Mean Corpuscular Hemoglobin 30.6 pg (26-34); Mean Corpuscular Volume 92.5 fl (80-100); Nucleated Red Blood Cells Absolute Auto 0.000 K/mm3 (0.0-0.012); Nucleated Red Blood Cells Perc 0.0 % (0.0-0.2); Platelet Count Result 260 k/mm3 (150-375); Red Blood Count 5.30 M/mm3 (4.6-6.20); White Blood Count 6.9 K/mm3 (4.5-10.0)
[2024-12-27 09:11] LABS: Hemoglobin A1C 5.8 % (<5.7)
[2024-12-27 09:12] LABS: Alanine Aminotransferase 31 U/L (6-50); Albumin Level 4.4 g/dL (3.5-5.1); Alkaline Phosphatase 76 U/L (38-126); Anion Gap 8 mmol/L (4-12); Aspartate Amino Transferase 31 U/L (17-59); Bilirubin,Total 0.5 mg/dL (0.2-1.3); Blood Urea Nitrogen 16 mg/dL (9-20); Calcium 9.4 mg/dL (8.4-10.2); Carbon Dioxide 26 mmol/L (22-30); Chloride 105 mmol/L (98-107); Cholesterol 218 mg/dL (0-200); Estimated Glomerular Filt Rate > 60; Glucose 107 mg/dL (65-110); HDL Direct 42 mg/dL; Potassium 4.8 mmol/L (3.4-5.0); Sodium 139 mmol/L (137-145); Total Protein 7.5 g/dL (6.3-8.2); Triglycerides 185 mg/dL (<150)
[2024-12-27 09:42] LABS: Thyroid Stimulating Hormone Reflex 2.330 uIU/mL (0.465-4.68)
[2024-12-27 09:48] LABS: Prostate Specific Antigen 2.9 ng/mL (< OR = 4.0)
[2024-12-27 10:07] LABS: Vitamin B12 388.0 pg/mL (239-931)
== END 2024-12-27 07:08 | disposition home or self-care (01) ==
PROVIDERS: PCP Family Medicine; Visit Provider Family Medicine
DX: Z12.5 Encounter for screening for malignant neoplasm of prostate (principal); Z12.2 Encounter for screening for malignant neoplasm of respiratory organs; Z87.891 Personal history of nicotine dependence; E78.5 Hyperlipidemia, unspecified; I10 Essential (primary) hypertension; R73.9 Hyperglycemia, unspecified; M79.662 Pain in left lower leg
CPT/HCPCS: 36415; 71271; 76706; 80053; 80061; 82306; 82607; 83036; 84153; 84443; 85025; 93971; G0103